=== PATIENT | male | born 1990 | race Caucasian/White ===

== ENCOUNTER 2020-11-07 18:36 | Emergency (ER) | payer SELFPAY ==
[~2020-11-07] VITALS: Ht 188 cm; Wt 104.5 kg
[2020-11-07 18:45] VITALS: BP 146/79
[2020-11-07] MEDS ORDERED: NEOM28.32 TP (19:21)
--- NOTE | 2020-11-07 19:22 | PHYS DOC ---
Past Medical History Past Medical History: Depression Past Surgical History: No Surgical History Smoking Status: Current Every Day Smoker Additional Information: 10/19 PPD Alcohol Use: None General Adult EDM: Chief Complaint: INSECT BITE HPI: HPI: Patient is a 30 year old male who presents to the ED today stating he got bit by a brown recluse spider 2 days ago while cleaning his basement. He states he did not see the spider bite him but he noted a region of redness on the back of his right leg that made him think it is a brown recluse spider. Denies any othe r symptoms. Review of Systems: Review of Systems: Constitutional: Denies fever or chills. [] Musculoskeletal: Denies back pain or joint pain. [] Integument: Reports insect bite to the right lower extremity Neurologic: Denies headache, focal weakness or sensory changes. [] Psychiatric: Denies depression or anxiety. [] Heart Score: Risk Factors: Risk Factors: DM, Current or recent (<one month) smoker, HTN, HLP, family history of CAD, obesity. Risk Scores: Score 0 - 3: 2.5% MACE over next 6 weeks - Discharge Home Score 4 - 6: 20.3% MACE over next 6 weeks - Admit for Clinical Observation Score 7 - 10: 72.7% MACE over next 6 weeks - Early Invasive Strategies Allergies: Allergies: Allergies Coded Allergies Type Severity Reaction Last Updated Verified No Known Drug Allergies 11/07/20 No Physical Exam: PE: Constitutional: Well developed, well nourished, no acute distress, non-toxic appearance. [] Skin: Above the Achilles tendon there is a superficial open wound roughly 0.3 x 0.3 cm with no signs of infection. This does not look like a brown recluse spider bite. It looks more like a scratch or a regular insect bite. The area does not look infected. No drainage. Back: No tenderness, no CVA tenderness. [] Extremities: No tenderness, no cyanosis, no clubbing, ROM intact, no edema. [] Neurologic: Alert and oriented X 3, normal motor function, normal sensory function, no focal deficits noted. [] Psychologic: Affect normal, judgement normal, mood normal. [] Current Patient Data: Vital Signs: Vital Signs Date Time Temp Pulse Resp B/P (MAP) Pulse Ox O2 Delivery O2 Flow Rate FiO2 11/07/20 18:45 98.5 87 22 146/79 (101) 99 Room Air 98.5 EKG: EKG: [] Radiology/Procedures: Radiology/Procedures: [] Course & Med Decision Making: Course & Med Decision Making Pertinent Labs and Imaging studies reviewed. (See chart for details) This is a 30-year-old male patient presenting to the ED today with an insect bite to the back of the right leg that he noted 2 days ago. She thought it was a brown recluse spider. There is no signs of a brown recluse spider bite. D/c to home. F/u with PCP next week as needed. Tetanus is up to date. Dragon Disclaimer: Casual Steps Disclaimer: This electronic medical record was generated, in whole or in part, using a voice recognition dictation system. Departure Departure Impression: Primary Impression: Insect bite Qualified Codes: S80.861A - Insect bite (nonvenomous), right lower leg, initial encounter; W57.XXXA - Bitten or stung by nonvenomous insect and other nonvenomous arthropods, initial encounter Disposition: 01 DC HOME SELF CARE/HOMELESS Condition: STABLE Referrals: NO PCP (PCP) Follow-up with your doctor as needed Patient Instructions: Insect Bite, [id number] Additional Instructions: You were evaluated in the emergency room, you have an open area on the right lower extremity. This does not appear to be a brown recluse spider bite. Keep the area clean and dry. Please follow-up with your doctor as needed. Scripts Neomy Sulf/Bacitrac Zn/Poly (NEOSPORIN OINTMENT) 28.3 Gm Oint...g. 1 EDE TP BID, #1 MISC Prov: BRENDON HUGHES INSURANCE COUNSELOR 11/07/20 BRENDON HUGHES INSURANCE COUNSELOR Nov 07, 2020 19:22
== END 2020-11-07 19:40 | disposition home or self-care (01) ==
LOC: ER 18:36
DX: S80.861A Insect bite (nonvenomous), right lower leg, initial encounter (principal); F32.9 Major depressive disorder, single episode, unspecified; F17.200 Nicotine dependence, unspecified, uncomplicated; W57.XXXA Bitten or stung by nonvenomous insect and other nonvenomous arthropods, initial encounter; Y93.89 Activity, other specified; Y92.89 Other specified places as the place of occurrence of the external cause; Y99.8 Other external cause status
CPT/HCPCS: 99282